=== PATIENT | male | born 1980 | race Caucasian/White ===

== ENCOUNTER 2018-11-21 09:28 | Day surgery (SDC) | payer BC ==
[~2018-11-21] VITALS: Ht 182.9 cm; Wt 113.4 kg
[~2018-11-21 09:28] MED LIST: CEFUROXIME500 MG PO; NORVASC5 MG PO
[2018-11-21 09:53] LABS: HEMATOCRIT 46.2 % (42.0-54.0); HEMOGLOBIN 16.2 g/dL (13.5-17.5); MCH 29.2 pg (26.0-34.0); MCHC 35.1 g/dL (31.0-37.0); MCV 83.4 fL (80.0-100.0); MEAN PLATELET VOLUME 9.8 fL (7.4-10.4); RBC 5.54 10x6/uL (4.20-6.10); RDW 13.2 % (11.5-14.5); WBC 9.1 10x3/uL (4.8-10.8)
[2018-11-21 10:30] VITALS: BP 140/83; Ht 182.9 cm; Wt 113.4 kg
[2018-11-21] MEDS ORDERED: PERCOCET 5-3251 TAB PO (14:58)
--- NOTE | 2018-11-21 16:04 | OP ---
PATIENT NAME: SY SHEPHERD MEDICAL RECORD: [id number] :80 LOCATION:LONG ADMISSION DATE: SURGEON: GUS FAJARDO DO DATE OF OPERATION: 11/21/2018 PROCEDURE PERFORMED: Left ankle Brostrom lateral ligament reconstruction and superior peroneal retinaculum repair. 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 INDICATIONS FOR SURGERY: The patient was playing basketball last week and went up for a rebound and felt a pop in his ankle. Once he felt a pop, he continued to sublux his peroneal tendons per his report and they could not be done in the office. An MRI was done, which did show an anterior talofibular ligament tear and a peroneal tendon tear in the peroneus brevis. I informed him that we could repair the anterior talofibular ligament as well as CFL if needed and repair that superior retinaculum, so his peroneal tendons would sublux over the fibula. The patient was informed of the risks including infection, bleeding, damage to the sural nerve and need for further surgery and continued ankle instability. He was okay with that as well as risk of blood clots and signed the consent. SURGEON: Gus Fajardo DO DESCRIPTION OF PROCEDURE: The patient was taken to the operative suite after given a block by anesthesia and given 2 grams Ancef preoperatively. The left lower extremity was prepped and draped. He was placed in the right lateral decubitus position and was well-padded. He had been sedated and an LMA was placed. After the left lower extremity was prepped and draped in sterile fashion, an incision was marked out over the fibula in a J-shape and the Esmarch was used to exsanguinate the left lower extremity. Tourniquet was then inflated to 350 mmHg, was up for 61 minutes. After the tourniquet was inflated, the incision was made in a J shape. Careful dissection was made down to the fibula. The ATFL was inspected and was seen to be completely torn off and was in a bad shape. Then, the CFL was inspected and seen to be in better shape and ATFL was a little laxity. The superior peroneal retinaculum was also inspected and seen to be torn slightly. This was opened up and the peroneal tendons were inspected. There was no tear seen in the peroneus brevis as indicated on MRI, but there was a low lying muscle belly and this was removed off the peroneus brevis in hopes to prevent subluxation again. The superficial peroneal retinaculum was then repaired with mini suture anchor 3.1 mm FiberTak. This was entered into the fibula and then sutured through the superficial peroneal retinaculum and brought over and tied making a nice repair of it. The attention was then drawn to the ATFL. The same SutureTak was tried twice and I was unable to implant. The tip was bent. We then used mini suture anchors, 3 of them, and placed two over the ATFL and 1 for the CFL and then these were implanted into the fibula anteriorly and anterior inferior and then inferior where the CFL was. Sutures were then taken through the ATFL and the inferior retinaculum as well as some of the capsule of the ankle and using a Dereck-Mateo technique stitch. These were then tied down and then the same was done repeated for the CFL and then taken up with a PushLock anchor into the fibula about 2 cm proximal. Once a good fixation there, the inferior retinaculum and superior retinaculum were OPERATIVE REPORT [id number] SY SHEPHERD oversewn with a 2-0 FiberWire getting a nice repair of both. The ankle was then tested with anterior drawer and talar tilt and seen to be very tight. The tourniquet was then let down and any bleeding was coagulated at that time. The skin was then closed with 2-0 Vicryl in inverted interrupted fashion. A ZipLine placed on the incision. Adaptic, 4 x 4s, ABD was then placed on the ankle and over the heel. A Webril was placed over that and then an U-shaped splint was placed on and held into place with 6-inch Sukumar wrap. ESTIMATED BLOOD LOSS: Minimal. COMPLICATIONS: None. TRANSINT:[id number] Voice Confirmation ID: [id number] DOCUMENT ID: [id number] GUS FAJARDO DO at [id number] CC: [id number] DICTATION DATE: 11/21/18 1511 RING SORTER: 11/21/18 1537 REG [facility] [address] [facility], [facility]
--- NOTE | 2018-11-21 17:28 | NUR ---
184 IV REMOVED DENIES PAIN, DRESSING APPLIED
== END 2018-11-21 17:15 | disposition home or self-care (01) ==
LOC: D.OPS 09:28 → D.PAN 12:00 → D.OPS 17:15
PROVIDERS: Anesthesiology; ATTEND Orthopaedic Surgery
DX: S93.02XA Subluxation of left ankle joint, initial encounter (principal); M25.372 Other instability, left ankle